=== PATIENT | female | born 1975 | race Caucasian/White ===

== ENCOUNTER 2020-10-08 22:46 | Inpatient (IN) | payer OTHER ==
[~2020-10-08] VITALS: Ht 165.1 cm; Wt 74.7 kg
--- NOTE | ~2020-10-08 | HC ---
[facility] [place] [address] CONSULTATION Name: KIRSTEN FOREMAN Room #: 242-P ADM IN M.R.#: [id number] Admission: 10/09/20 Attend Phys: Arnaud Olmstead MD Discharge: Date of : 77 Report #: [id number] THIS REPORT FOR: cc: Alpesh Conti MD, Srinath MD Elia, Manana MD ~ DATE OF SERVICE: 10/10/2020 REQUESTING PHYSICIAN: Arnaud Olmstead MD REASON FOR CONSULTATION: Ovarian carcinoma. HISTORY OF PRESENT ILLNESS: The patient is an unfortunate 45-year-old woman who has history of ovarian carcinoma, who is admitted to the hospital from [facility]. The patient is admitted to the hospital because of decreased urine output and altered mental status. She has a history of ovarian cancer, currently received only 1 cycle of chemotherapy. Because of severe complications, the patient's condition declined significantly and has been in a [facility] facility. She has a history of DVT, PE as well on this admission. The patient is diagnosed with hypokalemia, urinary tract infection, pneumonia, hypercalcemia. Oncology consult is requested. The patient is in the intensive care unit. She is not responding to my questions because of mental status changes. Her and daughter are at bedside. PAST MEDICAL HISTORY: See above. FAMILY HISTORY: Unknown. SOCIAL HISTORY: , has supportive family. PHYSICAL EXAMINATION: GENERAL: Cachectic woman with altered mental status, not in acute distress. VITAL SIGNS: Blood pressure 100/62, temperature 36.7, respirations 14. HEART: Normal S1, S2. LUNGS: Clear. ABDOMEN: No masses palpated. NEUROLOGIC: Mental status: See above. SKIN: There is no supraclavicular lymphadenopathy. LABORATORY DATA: White count 7.1, hemoglobin 7.7, platelets 367, potassium 1.9 on admission, today is 3.3, calcium 14.5 on admission, today, calcium is 12.5. CT of abdomen and pelvis shows peritoneal carcinomatosis, mass in the lower abdomen measuring 10.3 x 8.6 cm. ASSESSMENT: 1. End-stage ovarian carcinoma. [address] [address] CONSULTATION Name: KIRSTEN FOREMAN Room #: 242-P [facility] IN .R.#: [id number] Admission: 10/09/20 Attend Phys: Arnaud Olmstead MD Discharge: Date of : 77 Report #: [id number] 2. Hypercalcemia. 3. Hypokalemia. 4. Anemia. 5. Pneumonia. 6. Urinary tract infection. PLAN: I reviewed laboratory and imaging, the patient's history and chart. According to the chart, unfortunately the patient has end-stage ovarian carcinoma. She has not been able to tolerate any chemotherapy. She is not a candidate for intensive treatment. Hospitalist has discussed code status with the patient's family. I discussed the poor prognosis with the patient's and daughter. Hypercalcemia. Calcium is getting gradually better with hydration. I discussed possibility of reversing hypercalcemia with bisphosphonate. The patient's family is not sure if they want to pursue any aggressive treatment. Thank you very much for allowing me to participate in care of this patient. By: 1922 [id number] Katarina Francis MD /nt
--- NOTE | ~2020-10-08 | EMS ---
[address] [address] EMS Patient Care Report Name: KIRSTEN FOREMAN Room #: 242-P ADM IN M.R.#: [id number] Admission: 10/09/20 Attend Phys: Arnaud Olmstead MD Discharge: Date of : 77 Report #: [id number] THIS REPORT FOR: //name// Report Transmitted: 10/11/2020 08:20 EMS Care Summary [place], [place]/[facility] Incident [id number] @ 10/08/2020 22:07 Incident Location [id number] [place] [address] Patient KIRSTEN FOREMAN Female, 45 Years 1975 Patient Address [address] [place] [address] Patient History Cancer, Unspecified, Patient Allergies No known allergies, Patient Medications Other, Chief Complaint BREATHING DIFFICULTY Disposition Transported No Lights/[place] Dispatch Reason Breathing Problem Transported To [facility] Narrative M30 IS DISPATCHED TO LOCAL ASSISTED LIVING FACILITY FOR 45 Y/O FEMALE PT W/ A CHIEF COMPLAINT OF BREATHING DIFFICULITY, PER STAFF. UPON ARRIVAL PT IS LAYING IN BED ONLY RESPONSIVE TO VOICE. PT HAS HISTORY OF CANCER. PT IS ON 6 L/M NC. [address] [address] EMS Patient Care Report Name: KIRSTEN FOREMAN Room #: 242-P [facility] IN .R.#: [id number] Admission: 10/09/20 Attend Phys: Arnaud Olmstead MD Discharge: Date of : 77 Report #: [id number] PT IS LOADED ONTO EMS STRETCHER SEATED IN A SEMI-VILLEGAS POSITION. PT IS TAKEN AND LOADED INTO M30 WHERE FULL SET OF VITALS ARE TAKEN. PT IS PLACED ON 6 L/M NC. M30 BEGINS TRANSPORT TO [facility]. CALL PRECEEDS W/O INCIDENT. UPON ARRVIAL TO [facility] PT IS UNLOADED AND TAKEN TO ED ROOM 15 WHERE VERBAL REPORT IS GIVEN TO RECEIVING RN AND PT CARE IS TRANSFERRED TO HOSPITAL STAFF. M30 BACK IN SERVICE. Initial Vitals @22:38P: 87,R: 16,BP: 105/87,GCS: 13,SpO2: 100,Revised Trauma: 12, @22:41P: 80,R: 18,BP: 108/71,Pain: 0/10,GCS: 13,SpO2: 99,Revised Trauma: 12, Assessments @22:48MENTAL:Person Oriented,SKIN:No Abnormalities,HEENT:Head/Face: No Abnormalities,Eyes: No Abnormalities,Neck/Airway: No Abnormalities,LUNG SOUNDS:General: No Abnormalities,Left Upper: No Abnormalities,Right Upper: No Abnormalities,Left Lower: No Abnormalities,Right Lower: No Abnormalities,ABDOMEN:General: No Abnormalities,Left Upper: No Abnormalities,Right Upper: No Abnormalities,Left Lower: No Abnormalities,Right Lower: No Abnormalities,PELVIS//GI:No Abnormalities,EXTREMITIES:Left Arm: No Abnormalities,Right Arm: No Abnormalities,Left Leg: No Abnormalities,Right Leg: No Abnormalities,PULSE:Radial: 2+ Normal,NEURO:No Abnormalities,@22:54MENTAL:Person Oriented,SKIN:No Abnormalities,HEENT:Head/Face: No Abnormalities,Eyes: No Abnormalities,Neck/Airway: No Abnormalities,LUNG SOUNDS:General: No Abnormalities,Left Upper: No Abnormalities,Right Upper: No Abnormalities,Left Lower: No Abnormalities,Right Lower: No Abnormalities,ABDOMEN:General: No Abnormalities,Left Upper: No Abnormalities,Right Upper: No Abnormalities,Left Lower: No Abnormalities,Right Lower: No Abnormalities,PELVIS//GI:No Abnormalities,EXTREMITIES:Left Arm: No Abnormalities,Right Arm: No Abnormalities,Left Leg: No Abnormalities,Right Leg: No Abnormalities,PULSE:NEURO:No Abnormalities, Impression Cancer Procedures @22:42ALS AssessmentResponse: UnchangedSucceeded@PTAOxygen FlowRate: 6 Device: Nasal Cannula (NC) Response: ImprovedSucceeded Timeline PROCESS SUPERVISOR,Oxygen FlowRate: 6 Device: Nasal Cannula (NC) Response: ImprovedSucceeded, 22:05,Call Received 22:05,Dispatch Notified 22:07,Dispatched 22:08,En Route 22:21,On Scene [address] [address] EMS Patient Care Report Name: KIRSTEN FOREMAN Room #: 242-P ADM IN M.R.#: [id number] Admission: 10/09/20 Attend Phys: Arnaud Olmstead MD Discharge: Date of : 77 Report #: [id number] 22:23,At Patient 22:34,Depart Scene 22:38,BP: 105/87 M,PULSE: 87,RR: 16 R,SPO2: 100 Ox,ETCO2: ,BG: ,PAIN: ,GCS: 13, 22:40,At Destination 22:41,BP: 108/71 M,PULSE: 80,RR: 18 R,SPO2: 99 Ox,ETCO2: ,BG: ,PAIN: 0,GCS: 13, 22:42,ALS Assessment,Response: UnchangedSucceeded, 23:00,Call Closed Disclaimer v1.1 Copyright 2020 [employer] This EMS Care Summary contains data elements from the applicable legal record (which may be displayed differently). It is designed to provide pertinent information for the following purposes: continuity of care, clinical quality, and state data reporting. The complete legal record is available to ED staff and administrators of the receiving hospital in [facility]'s Patient Tracker. All data is provided "as is."
[2020-10-08 22:48] VITALS: BP 107/62
--- NOTE | 2020-10-08 23:16 | NUR ---
AZEEM NURSE CONTACTED SPOUSE, HAD TO LEAVE MESSAGE, I ALSO LEFT MESSAGE WITH NUMBER AND MESSAGE THAT SHE WAS HERE
[2020-10-08 23:17] LABS: HEMATOCRIT 26.3 % (37.0-47.0); HEMOGLOBIN 8.2 gm/dL (12.0-15.0); MCH 27.7 pg (26.0-34.0); MCHC 31.3 g/dL (28.0-37.0); MCV 88.3 fL (80.0-100.0); PLATELET COUNT 384 thou/uL (150-400); RBC 2.98 mil/uL (4.20-5.00); RDW 17.5 % (10.5-14.5); WBC 7.1 thou/uL (4.0-11.0)
[2020-10-08 23:35] LABS: ALBUMIN 1.2 g/dL (3.4-5.0); ANION GAP 2 mmol/L (7-16); BUN 14 mg/dL (7-18); CHLORIDE 104 mmol/L (98-107); CO2 37 mmol/L (21-32); CREATININE 0.6 mg/dL (0.6-1.0); GLUCOSE 82 mg/dL (74-106); SGOT 9 U/L (15-37); SGPT 5 U/L (14-59); SODIUM 143 mmol/L (136-145); TOTAL BILIRUBIN 0.5 mg/dL (0.2-1.0); TOTAL PROTEIN 5.3 g/dL (6.4-8.2); TROPONIN-I <0.06 ng/mL (<0.06)
[2020-10-08 23:38] LABS: POTASSIUM 1.9 mmol/L (3.5-5.1)
[2020-10-08 23:39] LABS: CALCIUM 14.5 mg/dL (8.5-10.1)
[2020-10-08 23:54] VITALS: BP 107/50
[2020-10-09] VITALS (9 sets, daily range): BP systolic 103–128; BP diastolic 62–71
[2020-10-09 00:26] LABS: ABSOLUTE NEUTROPHILS 4.5 thou/uL (1.4-8.2); ANISOCYTOSIS 1+; PLATELET ESTIMATE NORMAL; POIKILOCYTOSIS 1+
[2020-10-09 01:46] LABS: URINE BILIRUBIN NEGATIVE (Negative); URINE BLOOD 2+ (Negative); URINE CLARITY CLEAR; URINE COLOR YELLOW; URINE GLUCOSE-RANDOM* NEGATIVE (Negative); URINE KETONES NEGATIVE (Negative); URINE NITRITE-REFLEX NEGATIVE (Negative); URINE PROTEIN (DIPSTICK) NEGATIVE (Negative); URINE UROBILINOGEN 0.2 E.U./dl (0.2-1.0)
[2020-10-09 01:47] LABS: URINE LEUKOCYTES-REFLEX 1+ (Negative)
[2020-10-09 01:55] LABS: BACTERIA-REFLEX >30 Many /HPF (None Seen); COARSE GRANULAR CASTS 0-3 Few /LPF (None Seen); CRYSTALS None Seen /LPF (None Seen); FINE GRANULAR CASTS 0-3 Few /LPF (None Seen); HYALINE CASTS 0-3 Few /LPF (None Seen); MUCUS 0-3 Light strn/LPF (None Seen); SQUAMOUS 4-10 Moderate /LPF (0-3); URINE WBC-REFLEX 6-15 Few /HPF (0-5)
--- NOTE | 2020-10-09 04:15 | NUR ---
PT ADMITTED TO THE UNIT WITH C/O DECREASED MENTATION,OVARIAN CANCER ,NOT EATING AND LOW POTASSIUM LEVEL.PT IS ALERT.PT DOESNOT VERBALIZE NEEDS AND ANSWER QUESTIONS APPROPRIETELY.PT HAS A RT CHEST PORT AND A IV ACCESS ON THE RT FA .PT IS FROM [facility].LAI CATHETER IN PLACE.WILL CONTINUE TO MONITOR PER POC
[2020-10-09 07:23] LABS: MAGNESIUM 1.2 mg/dL (1.8-2.4)
--- NOTE | 2020-10-09 11:27 | NUR ---
Assumed pt care this am, pt is very weak and hard to arouse. Critical labs for K called MD informed orders given and implmented (K,Mg replacement through IV). Very poor appetite and a poor historian. Pt came through the ED, was informed by the night nurse that pt had come in with documentation from her facility but this was lost in the ED thus do paper work from facility was given to the unit. Informed MD of the status of the pt, changes status to cc tele. CT scan (stat) done then pt was sent to [facility], report given to the nurse.
[2020-10-09 13:48] LABS: ABSOLUTE NEUTROPHILS 5.8 thou/uL (1.4-8.2); BASOPHILS 0.4 % (0.0-2.0); EOSINOPHILS 1.5 % (0.0-3.0); HEMATOCRIT 25.7 % (37.0-47.0); HEMOGLOBIN 8.2 gm/dL (12.0-15.0); LYMPHOCYTES 12.7 % (24.0-44.0); MCH 27.7 pg (26.0-34.0); MCHC 31.8 g/dL (28.0-37.0); MONOCYTES 8.4 % (1.0-8.0); PLATELET COUNT 396 thou/uL (150-400); RBC 2.95 mil/uL (4.20-5.00); RDW 17.4 % (10.5-14.5); WBC 7.5 thou/uL (4.0-11.0)
[2020-10-09 13:58] LABS: HCO3 32.3 mmol/L (22.0-26.0); PCO2 44.4 mmHg (35.0-45.0); PO2 96.3 mmHg (80.0-100.0); sO2 97.7 % (92.0-98.0)
[2020-10-09 14:04] LABS: ANION GAP 0 mmol/L (7-16); BUN 12 mg/dL (7-18); CHLORIDE 110 mmol/L (98-107); CO2 36 mmol/L (21-32); CREATININE 0.5 mg/dL (0.6-1.0); GLUCOSE 100 mg/dL (74-106); PHOSPHORUS 1.9 mg/dL (2.6-4.7); SGOT 12 U/L (15-37); SGPT < 6 U/L (14-59); SODIUM 146 mmol/L (136-145); TOTAL BILIRUBIN 0.4 mg/dL (0.2-1.0); TOTAL PROTEIN 4.7 g/dL (6.4-8.2)
[2020-10-09 14:05] LABS: CALCIUM 13.3 mg/dL (8.5-10.1); POTASSIUM 2.6 mmol/L (3.5-5.1)
--- NOTE | 2020-10-09 14:06 | NUR ---
LAB CALLED WITH CRITICAL VALUE: CALCIUM 13.3 POTASSIUM 2.6 INFORMED NURSE
--- NOTE | 2020-10-09 19:37 | NUR ---
RECEIVED THIS PATIENT FROM [facility], DIFFICULT TO AROUSE AND STILL VERY WEAK.ON NASAL CANNULA AT 2LPM, SATURATING WELL.WITH ONOING POTASSIUM AND MAGNESIUM CORRECTION LAB RESULTS WERE VERY LOW.WITH IVF FLUIDS AND ANTIBIOTICS ON BOARD.CT SCAN WAS DONE PRIOR TO TRANSFER HERE IN THE UNIT AND REPORT WAS REVIEWED BY DR. COBIAN.PATIENT WAS SEEN BY DR. COBIAN AT THE UNIT.ALL LABORATORY ABNORMALITIES RELAYED TO DR. COBIAN AND ALL ORDERS CARRIED OUT. WAS ABLE TO TALK TO THE PATIENT'S .TRIED TO CONTACT THE CANCER CENTER WHERE PATIENT WAS GOING TO HAVE THE MEDICAL RECORDS BUT WAS UNABLE TO CONTACT IT.ALL NEEDS ATTENDED.HANDEDC OVER FOR FURTHER CARE.
[2020-10-09 22:16] LABS: HEMATOCRIT 25.5 % (37.0-47.0); HEMOGLOBIN 8.1 gm/dL (12.0-15.0); MCH 27.7 pg (26.0-34.0); MCHC 31.7 g/dL (28.0-37.0); MCV 87.4 fL (80.0-100.0); RBC 2.91 mil/uL (4.20-5.00); RDW 17.5 % (10.5-14.5); WBC 7.8 thou/uL (4.0-11.0)
[2020-10-09 22:29] LABS: CREATININE 0.6 mg/dL (0.6-1.0); INR 1.36; MAGNESIUM 1.5 mg/dL (1.8-2.4); POTASSIUM 3.2 mmol/L (3.5-5.1); PROTIME 14.6 Seconds (10.5-12.1)
[2020-10-09 22:32] LABS: CALCIUM 13.3 mg/dL (8.5-10.1)
[2020-10-10] VITALS (40 sets, daily range): BP systolic 90–128; BP diastolic 54–84
[2020-10-10 07:28] LABS: ABSOLUTE NEUTROPHILS 5.7 thou/uL (1.4-8.2); BASOPHILS 0.4 % (0.0-2.0); EOSINOPHILS 0.5 % (0.0-3.0); HEMATOCRIT 23.7 % (37.0-47.0); HEMOGLOBIN 7.7 gm/dL (12.0-15.0); MCH 28.4 pg (26.0-34.0); MCHC 32.5 g/dL (28.0-37.0); MCV 87.2 fL (80.0-100.0); MONOCYTES 9.3 % (1.0-8.0); PLATELET COUNT 367 thou/uL (150-400); POLYS 79.8 % (36.0-66.0); RBC 2.71 mil/uL (4.20-5.00); RDW 17.4 % (10.5-14.5); WBC 7.1 thou/uL (4.0-11.0)
--- NOTE | 2020-10-10 07:35 | NUR ---
pt remains lethargic responds to pain, vss, repositioned and turned frequently, incon't of bowel several times loose maroon colored samle sent to lab for ob, iv fluids infusing, electrolytes replaced and labs redrawn this am, bradley with yellow urine out put, report given to next shift to con't ppoc.
[2020-10-10 07:42] LABS: ALBUMIN 1.1 g/dL (3.4-5.0); CREATININE 0.6 mg/dL (0.6-1.0); MAGNESIUM 1.8 mg/dL (1.8-2.4); PHOSPHORUS 1.6 mg/dL (2.6-4.7); POTASSIUM 3.3 mmol/L (3.5-5.1); TOTAL BILIRUBIN 0.4 mg/dL (0.2-1.0)
[2020-10-10 07:44] LABS: CALCIUM 12.5 mg/dL (8.5-10.1)
--- NOTE | 2020-10-10 14:28 | EKG ---
[address] [place] [address] ELECTROCARDIOGRAM REPORT Name: KIRSTEN FOREMAN Room #: 242-P ADM IN .R.#: [id number] Admission: 10/09/20 Attend Phys: Arnaud Olmstead MD Discharge: Date of : 77 Report #: [id number] [facility] ED Test Date: 2020-10-08 Test Time: 23:40:52 Pat Name: KIRSTEN FOREMAN Department: Room: 242 Gender: F Commercial Pest Control Technician: : 1975 Requested By: Juliocesar Unger Order Number: [id number] MD: Jasvir Monte Measurements Intervals [place] Rate: 82 P: 39 MS: 144 QRS: 7 QRSD: 89 T: 195 QT: 254 QTc: 297 Interpretive Statements Sinus rhythm Nonspecific ST and T wave abnormality No previous ECG available for comparison Electronically Signed On 10-10-2020 14:27:56 CDT by Jasvir Monte [email or web address] <ELECTRONICALLY SIGNED> By: Jasvir Monte MD, [facility] 10/10/20 1427 2340 2340 Jasvir Monte MD, FACC /EPI
--- NOTE | 2020-10-10 14:55 | NUR ---
ASSUMED CARE OF PATIENT AT 0645 THIS MORNING. PATIENT LETHARGIC, MINIMALLY RESPONSIVE TO VOICE, FULLY RESPONSIVE TO PAINFUL STIMULI. NOT FOLLOWING COMMANDS. VITAL SIGNS STABLE. DISCUSSED WITH DR. COBIAN OF PATIENT'S MULTIPLE, LOOSE MAROON STOOLS WITH SEVERE PALPABLE FECAL COMPACTION, NEURO STATUS AND BLOOD CULTURE RESULTS. ORDER PLACED TO MOVE TO ICU. 1U PRBC INITIATED PRIOR TO TRANSFER. DISCUSSED CHANGES IN TREATMENT WITH , JOE, OVER THE PHONE. K AND MG REPLACEMENT IVPB REQUESTED FROM PHARMACY, WILL ANTICIPATE GIVING DOSES ONCE TRANSFERRED TO ICU.
--- NOTE | 2020-10-10 15:27 | NUR ---
A #5F TRIPLE LUMEN POSWER PICC WAS PLACED PER HOSPITAL POLICY AFTER A BEDSIDE TIMOUT WAS COMPLETED. THE LINE WAS TRIMMED TO 41 CM AND ADVANCED WITHOUT DIFFICULTY. THE MOHIT PICC WAS CONFIRMED USING SHERLOCK 3CG AT 5CM EXTERNAL. THE LINE WAS SECURED AND RELEASED FOR USE
[2020-10-10 15:55] LABS: HEMOGLOBIN 9.6 gm/dL (12.0-15.0)
--- NOTE | 2020-10-10 20:38 | NUR ---
PT IS NOT PROGRESSING TOWARDS DISCHARGE AT THIS TIME, PT ARRIVED TO THE UNIT FROM CCU AT 1225, AT THE TIME OF ARRIVAL PT WAS TRANSFUSING BLOOD. PICC LINE INSERTION WAS ORDERED THEN STARTED. ONCOLOGY CONSULT STOPPED BY TO SEE AND TALK TO THE FAMILY (,DAUGHTER, AND SON LATER) FAMILY WAS NOTIFIED OF CRITICAL STATUS AND WAS LATER DECIDED BY THE DPOA TO BE CHEMICAL CODE ONLY. CRITICAL LAB VALUES FOR POTASSIUM/LACTIC ACID/PROCALCITONIN/VANCOTROUGH ALL APPROPERIATELY CALLED IN TIMELY MANNER AND ADDRESSED PER PROTOCOL/ORDER. PT CONTINUES TO BE LETHARGIC THROUGHOUT THE SHIFT, DOES NOT MAKE ANY MEANINGFUL COMMUNICATIONS EXCEPT GRIMACING TO PAIN PER DOCUMENTATION. PT CONTINUES TO HAVE BLOODY STOOL, CLEANED SEVERAL TIMES THROUGHOUT THE DAY. H/H CAME BACK HIGHER AFTER THE 1ST UNIT TRANSFUSION. LACTIC ACID CAME BACK LOWER TO 2.1 WELL. RN SIGNING OFF AT THIS TIME.
[2020-10-11] VITALS (28 sets, daily range): BP systolic 89–113; BP diastolic 57–73
[2020-10-11 05:13] LABS: ABSOLUTE NEUTROPHILS 6.5 thou/uL (1.4-8.2); BASOPHILS 0.4 % (0.0-2.0); EOSINOPHILS 3.7 % (0.0-3.0); HEMATOCRIT 26.7 % (37.0-47.0); HEMOGLOBIN 8.8 gm/dL (12.0-15.0); LYMPHOCYTES 11.1 % (24.0-44.0); MCH 28.5 pg (26.0-34.0); MCHC 33.1 g/dL (28.0-37.0); MCV 85.9 fL (80.0-100.0); MONOCYTES 8.7 % (1.0-8.0); PLATELET COUNT 345 thou/uL (150-400); POLYS 76.1 % (36.0-66.0); RBC 3.11 mil/uL (4.20-5.00); RDW 16.7 % (10.5-14.5); WBC 8.5 thou/uL (4.0-11.0)
[2020-10-11 05:30] LABS: CALCIUM 10.8 mg/dL (8.5-10.1); CREATININE 0.6 mg/dL (0.6-1.0); MAGNESIUM 1.9 mg/dL (1.8-2.4); PHOSPHORUS 1.5 mg/dL (2.5-4.9); POTASSIUM 4.1 mmol/L (3.5-5.1); TOTAL BILIRUBIN 0.4 mg/dL (0.2-1.0); TOTAL PROTEIN 4.9 g/dL (6.4-8.2)
--- NOTE | 2020-10-11 13:31 | NUR ---
PT IS PROGRESSING TOWARDS DISCHARGE AT THIS TIME, PPN HAS BEEN ORDERED, ELECTROLYTE LEVELS ARE BALANCING PER AM LABS, THORACENTESIS COMPLETED 1.1L REMOVED, PARACENTESIS COMPLETED 100cc REMOVED FOR DIAGNOSTICS. PT IS CONTINUING TO RECEIVE APPROPERIATE ANTIBIOTICS. PT IS MORE ALERT TODAY THAN YESTERDAY, ABLE TO MAINTAIN MORE OF AN EYE CONTACT. IS ABLE TO FORMULATE WORDS. HAVE BEEN UPDATED REGARDING CURRENT STATUS. WAS PRESENT IN THE MORNING, STATED THAT HE WILL CONSULT WITH PHYSICIANS AT [facility] FOR INFORMATION. PER PT LIKES TO LISTEN TO [employer].
[2020-10-11 13:39] LABS: CLARITY HAZY; COLOR YELLOW; TOTAL VOLUME 57 mL
[2020-10-11 13:43] LABS: CLARITY HAZY; COLOR YELLOW; SOURCE LEFT CHEST; TOTAL VOLUME 62 mL
--- NOTE | 2020-10-11 14:09 | NUR ---
Pt admitted from [facility];phone: [phone] fax:[phone]. Pt is pleasantly confused - BENJAMÍN contacted and VM left w/ callback number NOK: Spouse Rodri [phone] Insurance: for life ADLs: Assistance required SW spoke w/ Maylin at [facility], pt has been receiving rehab at their facility for the past month. [facility] attempted to fax referral for possible readmission, however the fax number has not worked. ESTRADA contacted Maylin to provide additional fax number. Per medical team, palliative care consult for goals of care reccomended. SW following for additonal D/C plan needs.
[2020-10-11 14:34] LABS: BF NUCLEATED CELLS 21 /mm3; BF RBC 585 /mm3
[2020-10-11 14:39] LABS: BF NUCLEATED CELLS 107 /mm3; BF RBC 240 /mm3
[2020-10-11 15:16] LABS: BF MACROPHAGE 22 %; BF NEUTROPHILS 21 %
[2020-10-11 15:20] LABS: BF MACROPHAGE 16 %; BF NEUTROPHILS 28 %
[2020-10-12] VITALS (22 sets, daily range): BP systolic 90–121; BP diastolic 58–82
--- NOTE | 2020-10-12 04:51 | NUR ---
Pt pulling back covers, asking for jacket and shoes so she can go home. Pt is insisting she is going home today, adamant she wants to leave. RN redirected pt to time and location, reminded pt she can speak with family today when they visit her.
[2020-10-12 04:59] LABS: CALCIUM 9.5 mg/dL (8.5-10.1); CREATININE 0.5 mg/dL (0.6-1.0); POTASSIUM 3.5 mmol/L (3.5-5.1)
[2020-10-12 05:22] LABS: HEMATOCRIT 26.3 % (37.0-47.0); HEMOGLOBIN 8.7 gm/dL (12.0-15.0); MCH 28.6 pg (26.0-34.0); MCHC 33.2 g/dL (28.0-37.0); MCV 86.1 fL (80.0-100.0); RBC 3.06 mil/uL (4.20-5.00); RDW 16.8 % (10.5-14.5); WBC 8.5 thou/uL (4.0-11.0)
[2020-10-12 09:04] LABS: SOURCE LEFT CHEST
--- NOTE | 2020-10-12 12:50 | NUR ---
PT IS PROGRESSING TOWARDS DISCHARGE, ELECTROLYTE IMBALANCE BEING ADDRESSED DAILY, PT IS NOT LETHARGIC, IS STILL CONFUSED BUT MENTATION STATUS MUCH IMPROVING, RN SPOKE WITH AND REQUESTED THAT HE SPEAK WITH FAMILY MEMBERS REGARDING PLAN OF CARE SO THAT IT MAY ASSIST WITH DECISION MAKING. CONSULT ORDERED BY , RN CALLED. PT CONTINUING TO PASS STOOL. AT TIMES DIFFICULTY FINDING REST BUT BOUTS OF REST PERIODS ALSO SEEN. PER PT IS OKAY TO TRANSFER TO CCU UNIT. RN AWAITING ORDERS
[2020-10-13] VITALS (11 sets, daily range): BP systolic 95–123; BP diastolic 58–84
--- NOTE | 2020-10-13 04:38 | NUR ---
PT C/O INTERMITTENT ABDOMINAL PAIN AND PAIN IN BLE WITH REPOSITIONING. PRN PAIN MEDICATION GIVEN. PT SLEPT MOST OF THE NIGHT. RESPIRATIONS EVEN AND UNLABORED. WHEN AWAKE, SHE IS ORIENTED TO PERSON AND KNOWS THAT SHE IS IN THE HOSPITAL. OTHERWISE, SHE MAKES CONFUSED STATEMENTS. REPOSITIONED TO PREVENT SKIN BREAKDOWN. PT HAS HAD 2 LOOSE STOOLS THIS SHIFT. PPN INFUSING VIA CENTRAL LINE. FALL PRECAUTIONS REMAIN IN PLACE. SHE IS PROGRESSING SLOWLY TOWARD POC GOALS. WILL CONTINUE TO MONITOR FURTHER.
--- NOTE | 2020-10-13 10:51 | NUR ---
Abhijeet notified by Dr whitney Payan, visited with family r/t hospice yesterday. Cm notified by Oncology MD that not able to take any tx for her cancer and mass. Cm left message with spouse pamela requesting a call back. Will send out referrals for home with hospice after talk with her and her spouse.
[2020-10-13 19:07] LABS: BODY FLUID ALBUMIN 0.7 g/dL (Not Estab.); BODY FLUID ALBUMIN 0.8 g/dL (Not Estab.); BODY FLUID AMYLASE 4 U/L (()); BODY FLUID AMYLASE 9 U/L (()); BODY FLUID GLUCOSE 101 mg/dL (()); BODY FLUID GLUCOSE 73 mg/dL (()); BODY FLUID LDH 241 IU/L (()); BODY FLUID LDH 60 IU/L (()); BODY FLUID PROTEIN 1.7 g/dL (()); BODY FLUID PROTEIN 1.9 g/dL (())
--- NOTE | 2020-10-13 19:15 | NUR ---
PATIENT CONFUSED AND DROWSY THIS MORNING, BUT IMPROVED MENTATION THROUGH OUT THE DAY WHILE FAMILY WAS VISITING. VSS THROUGH OUT THE DAY. PRN PAIN MEDICATION GIVEN REQUESTED. ADVANCED DIET TO REGULAR DIET BUT PATIENT REFUSED TO EAT MEALS, STATING "THE SMELL OF FOOD WILL MAKE ME NAUSEAS". PROVIDED ICE WATER AND TOLERATED WELL. REMAINS ON PPN. LAI PATENT. CONVERSATION WITH TODAY, PLAN FOR PATIENT TO GO HOME WITH HOSPICE SERVICES. PROVIDERS ON BOARD WITH THIS PLAN. WAITING FOR CASE MANAGEMENT AND HOSPICE EVAL.
--- NOTE | 2020-10-13 22:35 | NUR ---
REPORT GIVEN TO GHISLAINE HINSON. PT TRANSFERED TO ROOM 437 VIA BED BY TOOLING SPECIALIST. PT MED-SURG STATUS.
[2020-10-14 02:30] VITALS: BP 107/71
[2020-10-14 05:29] LABS: HEMATOCRIT 23.3 % (37.0-47.0); HEMOGLOBIN 7.8 gm/dL (12.0-15.0); MCH 28.4 pg (26.0-34.0); MCHC 33.3 g/dL (28.0-37.0); MCV 85.3 fL (80.0-100.0); RBC 2.74 mil/uL (4.20-5.00); WBC 6.6 thou/uL (4.0-11.0)
[2020-10-14 05:42] LABS: CALCIUM 8.5 mg/dL (8.5-10.1); CREATININE 0.4 mg/dL (0.6-1.0)
[2020-10-14 05:53] LABS: POTASSIUM 2.5 mmol/L (3.5-5.1)
[2020-10-14 07:10] VITALS: BP 113/69
[2020-10-14] MEDS ORDERED: MSL20MG/ML PO (09:18)
[2020-10-14] MEDS ORDERED: ATIVAN1 M1 PO (09:19)
[2020-10-14 13:24] VITALS: BP 113/69
[2020-10-14 13:38] LABS: CALCIUM 8.8 mg/dL (8.5-10.1); CREATININE 0.5 mg/dL (0.6-1.0)
[2020-10-14 13:44] LABS: POTASSIUM 3.9 mmol/L (3.5-5.1)
[2020-10-14 15:24] VITALS: BP 113/69
--- NOTE | 2020-10-14 15:41 | NUR ---
ON-GOING ASSESSMENT: CM REVIEWED CHART. PT TRANSFERRED UP FROM ICU. CM RECEIVED A CALL THIS AM FROM PTS STATING HE WAS GIVEN THIS NUMBER TO DISCUSS DISCHAGRE PLAN. CM REVIEWED CHART AND ASKED IF PATIENT AND HAD BEEN INFORMED ABOUT HOSPICE SERVICES. STATING HE WANTS TO TALK WITH THE HOSPITALIST HE FEELS HE HAS BEEN GETTING MIXED INFORMATION FROM PHYSICIANS SO WANTS TO CLARIFY THAT BEFORE AGREEING TO HOSPICE. CM REACHED ATTENDING TO HAVE HIM CONTACT PATIENTS JOE. CM MET WITH PATIENT AT THE BEDSIDE AND ALSO SPOKE TO PTS AFTER TALKING WITH THE PHYSICIAN. CM DISCUSSED THAT AN INFORMATION VISIT FOR HOSPICE SERVICES CAN BE INITIATED IF THEY ARE INTERESTED. STATING HE KNOWS THAT [facility] GOES TO [place] WHERE THEY LIVE AND WANTED A REFERRAL THERE. CM FAXED REFERRAL AND SPOKE WITH [facility] WHO REPORTS MARGIE THEIR RN WILL BE OUT TO DO VISIT AT 1330 AND SIGN CONCENTS IF PATIENT IS INTERESTED. CM MET WITH PATIENT AND AFTER VISIT AND THEY WANT TO PROCEED HOME WITH [facility] TODAY. [facility] STATING THAT THEY CAN HAVE EQUIPMENT TO PATIENTS HOME BY 6PM. PTS AND DAUGHTER ARE HERE TO VISIT WITH PATIENT AND GOING HOME SO THE EQUIPMENT CAN BE DELIVERED. THEY REQUEST PT BE TRANSFERED HOME VIA AMBULANCE. CM FAXED DISCHARGE PAPERWORK TO [facility] AND CONFIRMED THEY RECEIVED IT. BEDSIDE RN SPOKE WITH THEIR LIASON AND WILL HAVE THEIR NURSE CALL. CM COMPLETED OUTSIDE DNR FORM AND IS ON CHART. CM COMPLETED [facility] FORM AND TRANSPORATION HAS BEEN SCHEDULED FOR 1830 PICKUP TIME AND [facility] WAS GIVEN THE BEDSIDE RN NUMBER TO CONTACT IF THAT CHANGES. [facility] CAN BE REACHED AT [phone] IF NEEDED. PT REPORTS SHE HAS NO FURTHER QUESTIONS FROM CM . CASE CLOSED.
[2020-10-14 16:09] VITALS: BP 133/95
[2020-10-14 16:40] LABS: % SATURATION 74 % (20-39); IRON 40 ug/dL (50-170); TIBC 54 ug/dL (250-450)
--- NOTE | 2020-10-14 19:38 | NUR ---
ASSUMED PT CARE THIS AM. PT IS ALERT & ORIENTED X2 BUT FORGETFUL AND CONFUSED AT TIMES. REMOVED R AC AND R UA PICC LINE. REMOVED LAI CATH. PT HAS BOOTS ON AND SCD. INFORMED DR THAT POTASSIUM WAS LOW AND GIVEN POTASSIUM REPLACEMENT ORDERED AND RECHECK POTASSIUM AND NOW WITHIN NORMAL LIMITS. PT IS ON ROOM AIR. PT IS ON CONTACT ISOLATION DUE TO VRE IN URINE. GIVEN ANTIDIARRHEAL MED PER PT REQUEST. PT FAMILY AT THE BEDSIDE. AWAITING FOR TRANSPORTATION THAT WAS SET BY CM TODAY. PT ON THE BED, BED ON THE LOWEST POSITION, SIDE RAILS UP, CALL LIGHT WITHIN REACH. WILL CONTINUE TO MONITOR PT. FOLLOW POC. ENDORSE NIGHT NURSE.
--- NOTE | 2020-10-14 22:30 | NUR ---
Pt. discharged to home via fire dept.
[2020-10-15 09:08] LABS: IgG 1198 mg/dL (586-1602)
[2020-10-16 11:07] LABS: CERULOPLASMIN 18.5 mg/dL (19.0-39.0)
[2020-10-16 17:06] LABS: ANA INTERPRETATION Negative (Negative)
[2020-10-17 17:06] LABS: MITOCHONDRIAL ANTIBODY <20.0 Units (0.0-20.0); SMOOTH MUSCLE ANTIBODY 11 Units (0-19)
--- NOTE | 2020-10-18 12:06 | PATH ---
[facility] [place] [address] PATHOLOGY RPT PROCEDURE Name: KIRSTEN FOREMAN Room #: 441-P [facility] IN M.R.#: [id number] Admission: 10/09/20 Date of : 77 Discharge: 10/14/20 Report #: [id number] Path Case #: [id number] Note [facility] Accession Number: [id number] TESTS RESULT FLAG UNITS REF RANGE LAB Clinician Provided Cytology Information No. of containers..01 Other (Miscellaneous) Source: ASCITES DIAGNOSIS: ASCITES NEGATIVE FOR MALIGNANT CELLS. MESOTHELIAL CELLS ARE PRESENT. SCANT CELLULARITY. COMMENT: History of ovarian cancer is noted and the surgical specimen report with the specimen number [id number] (please see separate report for details) is gathered for additional history. 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 For this reason, multiple properly controlled immunohistochemical stains are performed on formalin fixed cell block of the current specimen. There is no reactivity identified with CDX2 as well as TAG-72 (B72.3). Rare cells are noted with reactivity for calretinin as well as desmin consistent with reactive mesothelial cells within the background. Multiple cells with reactivity for CD68 are identified consistent with macrophages. Lack of reactivity with CDX2 as well as TAG-72) argues against presence of mucinous carcinoma cells within the current ascites fluid. Please note sample may not be entirely customer service representative due to "scant cellularity". Clinical correlation is suggested. (IUV:pit; 10/18/2020) Pathologist ICD10: 02 R18.8 Signed out by: 02 Elizabeth Celaya MD, Pathologist NPI- [id number] Performed by: 01 Swapna Plasecncia Director Biostatistics ([facility]) Gross description: 01 20ML, CLEAR YELLOW, 1 TP 1CB /LCS 10/18/2020 1104 Local FLAG LEGEND: L-Low Normal,H-High Normal,LL-Alert Low,HH-Alert High <-Panic Low,>-Panic High,A-Abnormal,[place] [address] PATHOLOGY RPT PROCEDURE Name: KIRSTEN FOREMAN Room #: 441-P [facility] IN M.R.#: [id number] Admission: 10/09/20 Date of : 77 Discharge: 10/14/20 Report #: [id number] Path Case #: [id number] Performed at: [address] [place] [address] Bandar Granados MD, [address] [address] Elizabeth Celaya MD, Specimen Comment: A courtesy copy of this report has been sent to [phone] Performed at: [address], [place], [place] [id number] MD Bandar Granados MD Phone: [phone]
== END 2020-10-14 22:30 | disposition hospice, home (50) | DRG 871 ==
LOC: ER 22:46 → 2N 10-09 02:08 → ICU 10-09 02:08 → EROBS 10-09 02:08 → 4W 10-09 03:27 → 2N 10-09 10:44 → ICU 10-10 12:25 → 4S 10-13 22:35
PROVIDERS: Emergency Medicine; Hospitalist; Internal Medicine; Internal Medicine Pulmonary Disease; Nurse Practitioner; Nurse Practitioner Family; Pediatrics; ADMIT Hospitalist; ATTEND Hospitalist
PROC: 30233N1 Transfusion of Nonautologous Red Blood Cells into Peripheral Vein, Percutaneous Approach (ICD-10-PCS; principal; 2020-10-10)
PROC: 05HY33Z Insertion of Infusion Device into Upper Vein, Percutaneous Approach (ICD-10-PCS; principal; 2020-10-10)
PROC: 0W9G3ZZ Drainage of Peritoneal Cavity, Percutaneous Approach (ICD-10-PCS; 2020-10-11)
PROC: 0W9B3ZZ Drainage of Left Pleural Cavity, Percutaneous Approach (ICD-10-PCS; 2020-10-11)
DX: B37.7 Candidal sepsis (principal); J18.9 Pneumonia, unspecified organism; E43 Unspecified severe protein-calorie malnutrition; J96.21 Acute and chronic respiratory failure with hypoxia; G92 Toxic encephalopathy; C56.9 Malignant neoplasm of unspecified ovary; R18.0 Malignant ascites; N39.0 Urinary tract infection, site not specified; E87.0 Hyperosmolality and hypernatremia; J91.8 Pleural effusion in other conditions classified elsewhere; K92.2 Gastrointestinal hemorrhage, unspecified; C78.6 Secondary malignant neoplasm of retroperitoneum and peritoneum; E87.6 Hypokalemia; D64.9 Anemia, unspecified; E83.52 Hypercalcemia; B37.9 Candidiasis, unspecified; E83.42 Hypomagnesemia; E83.39 Other disorders of phosphorus metabolism; K56.41 Fecal impaction; Z20.822 Contact with and (suspected) exposure to COVID-19; Z86.718 Personal history of other venous thrombosis and embolism; Z86.711 Personal history of pulmonary embolism; Z68.27 Body mass index [BMI] 27.0-27.9, adult; Z79.01 Long term (current) use of anticoagulants
CPT/HCPCS: 10078; 10081; 10195; 10203; 27000